=== PATIENT | male | born 1945 | race Hispanic/Latino ===

== ENCOUNTER 2025-02-19 05:56 | Observation (INO) | payer OTHER ==
[2025-02-13 11:31] VITALS: BP 147/71; PULSE 66; RESP 17; TEMP 98.1
--- NOTE | 2025-02-13 11:40 | NUR ---
RE: IS INITIAL IS INITIAL INSTRUCTIONS DONE BY RT ENE DURING PREOP.
[~2025-02-19] VITALS: Ht 180.3 cm; Wt 86.6 kg
[2025-02-19] VITALS (22 sets, daily range): BP systolic 119–153; BP diastolic 63–93; PULSE 62–94; RESP 14–20; TEMP 97.6–98.3; O2SAT 99–100
[2025-02-19] MEDS: GABAPENTIN 300 MG CAPSULE ONE (06:34)
[2025-02-19] MEDS: LACTATED RINGERS 1000ML 1,000 ML IV ONE (06:36)
[2025-02-19] MEDS ORDERED: FAMOTIDINE 20MG VIAL IV ONE (06:46)
[2025-02-19] MEDS ORDERED: LOSA25TA41 PO (06:47)
[2025-02-19] MEDS ORDERED: LIDOCAINE PF 100MG/5ML (2%) SYRINGE 5ML ONE (06:51)
[2025-02-19] MEDS ORDERED: TRANEXAMIC ACID 1000MG/10ML ONE (06:55)
[2025-02-19] MEDS ORDERED: GLYCOPYRROLATE 0.2 MG/ML 5 ML VIAL ONE (08:55)
[2025-02-19] MEDS ORDERED: NEOSTIGMINE METHYLSULFATE 1MG/ML IV ONE (08:55)
[2025-02-19] MEDS ORDERED: FERROUS FUMARATE 324 MG TABLET PO PRN (09:00)
[2025-02-19] MEDS ORDERED: CALCIUM CARB 500MG PO PRN (09:00)
[2025-02-19] MEDS ORDERED: PoTASSium chloRIDE 20MEQ ER 20 MEQ ERTAB PO PRN (09:00)
[2025-02-19] MEDS ORDERED: HYDROcodone/APAP 5/325 1 TAB TABLET PO PRN (09:00)
[2025-02-19] MEDS ORDERED: PoTASSium chl 10% ELIXIR 20MEQ 20 MEQ/15 ML UDCUP PO PRN (09:00)
--- NOTE | 2025-02-19 09:04 | DS ---
Discharge Summary Hospital Course Summary: The patient was admitted to the hospital postoperatively on 02/19/2025 after undergoing left total knee arthroplasty. They did well with routine postoperative pain control. They worked well with physical therapy. They developed some acute blood loss anemia but remained asymptomatic. The hospital course was otherwise uncomplicated. They were subsequently able to be discharged on postoperative day [] once discharge arrangements were made with home health physical therapy. [employer] Equipment Maintenance Supervisor(s): None Procedure(s): Left total knee arthroplasty, 02/19/2025 Assessment/Plan: Postop day two status post left total knee arthroplasty doing well. Patient reports pain is a six this afternoon having just finished therapy. He states that he has had a bowel movement and is excited to go home. Vital signs stable, afebrile No acute distress, alert and oriented x3 Nonlabored breathing Reclined in bed Left lower extremity -mild diffuse edema with mild ecchymosis present about the knee -surgical dressing is clean intact with a small serosanguineous blush -patient is able to tolerate manipulation to get within 5 of full extension with pain -the normal expected amount of postoperative warmth and swelling is present He has been able to walk on room 150-200 feet with physical therapy. He does have home health arranged through the [place]. ASSESSMENT: Status post left total knee arthroplasty Acute blood loss anemia PLAN: See discharge instructions Discharge Instructions: Begin working with home health physical therapy. Dressing may be removed 02/21/2025 and left open to air. Showers ok allowing soap and water to run over the wound. Pat dry. Do not submerge wound in tub/pool. Do not apply ointments. Do not apply Betadine. Do not apply peroxide. Ice packs to decrease pain/swelling. Prescriptions have been sent to the pharmacy: *[place] 5/325mg 1-2 tab every 6 hours as needed for severe pain. (please call for refills) Cyclobenzaprine 5mg 1 tab every 8 hours as needed for muscle spasm pain. Gabapentin 100mg 1 tab every 8 hours (may discontinue if drowsy). Colace 100mg 1 tab orally twice a day as needed for constipation. Aspirin 325mg twice a day for 30 days to prevent blood clots. Follow up appointment scheduled on 03/13/2025 at 1:45 pm [facility]. Home Medications: Active Scripts Docusate Sodium (Colace) 100 Mg Capsule, 1 CAP PO BID for 30 Days, #60 CAP 0 Refills Prov:KIN BERGER MD 02/21/25 Hydrocodone/Acetaminophen (Hydrocodon-Acetaminophen 5-325) 5 Mg-325 Mg Tablet, 2 TAB PO Q6HPRN PRN for SEVERE PAIN (7-10), #56 TAB 0 Refills Prov:KIN BERGER MD 02/21/25 Gabapentin (Neurontin) 100 Mg Capsule, 100 MG PO TID, #90 CAP 0 Refills Prov:KIN BEGRER MD 02/21/25 Cyclobenzaprine HCl (Cyclobenzaprine HCl) 10 Mg Tablet, 5 MG PO Q8H PRN for MUSCLE SPASMS, #45 TAB 0 Refills Prov:KIN BERGER MD 02/21/25 Aspirin (Aspirin EC) 325 Mg Tablet.dr, 325 MG PO DAILY, #30 TAB 0 Refills Prov:KIN BERGER MD 02/21/25 Reported Medications Tamsulosin HCl (Flomax) 0.4 Mg Cap.er.24h, 1 CAP PO DAILY for 30 Days, #30 CAP 0 Refills 02/19/25 Losartan Potassium (Losartan Potassium) 25 Mg Tablet, 0.5 TAB PO DAILY for 30 Days, #30 TAB 0 Refills 02/19/25 KIN BERGER MD Feb 19, 2025 09:04
--- NOTE | 2025-02-19 09:07 | OP ---
Operative Note: DATE OF PROCEDURE: 02/19/25 PREOPERATIVE DIAGNOSIS: Left knee osteoarthritis. POSTOPERATIVE DIAGNOSIS: Left knee osteoarthritis. PROCEDURE PERFORMED: Left knee total knee arthroplasty. SURGEON: Joycelyn Rossi MD THIRD LOADER: Omid Rubio and Martina Cox. ANESTHESIA: General with adductor canal block. ANESTHESIA: NATALIIA Trinh. ESTIMATED BLOOD LOSS: 50cc. COMPLICATIONS: None. DRAINS: None. SPECIMENS REMOVED: resected bone. Not sent to pathology. IMPLANTS: [employer] II BCS size 7 Oxinium femur, size 7 tibial base plate, 35 mm patella, 13 mm polyethylene STATEMENT OF MEDICAL NECESSITY: The patient is a 79-year-old male who suffers from left knee osteoarthritis failing conservative management. After discussion of the risks, benefits, and alternatives with the patient, they voluntarily agreed to undergo the aforementioned procedure. DESCRIPTION OF PROCEDURE: Patient was properly identified in the preoperative holding area. Surgical site marking was verified and surgery consent reviewed. The patient was then taken to the operating room and placed in supine position on the OR table. After induction of general anesthesia, preoperative antibiotics were given, all bony prominences were well-padded, and a well padded tourniquet was applied but not inflated at this time. The left lower extremity was then prepped and draped in usual sterile fashion. Surgical time out was done verifying correct surgery, side, site, and location to be performed. We then began the procedure by exsanguinating the limb using an Esmarch and inflating the tourniquet to 350 mmHg. At this point, we made an anterior midline incision using a 10 blade, coming down sharply the level of the fascia. Skin flaps were elevated medially and laterally. We then obtained a clean 10 blade and performed a standard medial parapatellar arthrotomy. We excised the infrapatellar fat pad. We performed our soft tissue releases off of the tibia. We transected the ACL and removed the anterior portion of the medial & lateral meniscus. We then brought the knee into hyperflexion with the patella everted. We used our entry reamer to enter the femoral canal. We then placed our intramedullary cutting guide for our distal femoral cutting block. We then performed our distal femoral osteotomy ensuring appropriate rotation and removed the bony wafer. We then removed these pins and block and then used jig 2 to size the distal femur with the after mentioned size found. We then placed our 5-in-1 cutting block in 3 degrees of external rotation and took our 5 cuts ensuring to protect the patellar tendon and the collateral ligaments. We then removed the cutting block and our bony fragments using a curved osteotome. We then placed our PCL retractor subluxating the tibia anteriorly. Using an extra medullary tibial cutting guide, we hung the block for our proximal tibial cut taking 2 mm off the more diseased portion. Prior to pinning this block in place, we ensured appropriate varus/valgus alignment and posterior slope similar to the [place] slope of the patient's knee. We then performed our proximal tibial osteotomy and removed the bony wafer using Bovie electrocautery to release any remaining soft tissue attachments. We then used our tibial sizing paddle and checked once more for varus & valgus alignment and found this to be appropriate. At this point, we pinned our tibial paddle in place. We then removed the PCL retractor and subluxated the tibia posteriorly while we placed our femoral trial component. We then finished preparing the notch with the reamer and box chisel. The notch portion of the trial femoral component was then placed. A posterior stabilized polyethylene, size 9 trial was placed. This was immediately increased up to a size 11 due to laxity with varus and valgus stress. The knee was then taken through range of motion and found to have stable full range of motion. We then placed a bump under the ankle and everted the patella to perform our freehand cut of the undersurface the patella. We then sized our patella and reamed to the lug holes for this. We placed our trial patellar component and begin to take the knee through range of motion. The patella had appropriate tracking. At this point we began removing our trial components and punched the tibial keel prior to removing our tibial trial component. Final components were opened and cement was mixed on the back table while we injected local cocktail in the posterior capsule. We then thoroughly irrigated out the bone and dried the bony surfaces. We cemented our tibial component in place ensuring to remove excess cement and placed our trial polyethylene. We then cemented our femoral component in place once again taking time to ensure excess cement was removed leg was brought into full extension to help squeeze the excess cement from around the femoral component. We then brought the knee back in a flexion to remove this portion of the cement at this point we placed the ankle in a bump thoroughly irrigated off the patellar component and cemented our patellar component in standard fashion again removing excess cement. While we waited for the cement to cure, we thoroughly irrigated out the wound with normal saline. Once our cement had cured, we took the knee through a range of motion and found full and stable range of motion. We then elected to use the size 13 polyethylene and removed our trial polyethylene. We impacted our final polyethylene component in place in standard fashion and took the knee through a range of motion check once more. This was satisfactory so we began to repair the arthrotomy using #5 Ethibond and #1 Vicryl in interrupted encnnc-en-oaklz fashion. Subcutaneous tissue was repaired using 2-0 Vicryl. Running subcuticular 3-0 Monocryl stitch with Dermabond placed over this for the skin. We then applied a foam barrier dressing and a pressure dressing consisting of 4 x 4's fluffs and an Tristin wrap. The tourniquet was then deflated. Patient was awakened from anesthesia, and they were taken to the recovery room in stable condition. JOYCELYN ROSSI MD Feb 19, 2025 09:07
--- NOTE | 2025-02-19 10:06 | HMCIMG ---
EXAM: CR right Knee, 2 View. CLINICAL HISTORY: S/P LEFT TKA SURGERY COMPARISON: None provided. FINDINGS: Cemented left total knee arthroplasty is in near anatomic alignment with no periprosthetic fracture appreciated. Appropriate postsurgical changes about the knee joint, and the knee joint effusion. There is no displaced fracture appreciated. IMPRESSION: 1. Near anatomic alignment of cemented left total knee arthroplasty with knee joint effusion. /[place]
[2025-02-19] MEDS: 0.9%NACL 1000ML 1,000 ML IV SCH (12:06)
[2025-02-19] MEDS: HYDROcodone/APAP 5/325 1 TAB TABLET PO PRN ×2 (12:15→19:07)
--- NOTE | 2025-02-19 15:00 | NUR ---
Ortho Coordinator: Teaching regarding DVT and pneumonia prevention, pain expectation and pain management. Patient up to to chair, family member at bedside. B SCD sleeves and machine at bedside. Incentive spirometer at bedside. Respiratory therapy has been notified, pending instructions for use. Patient able to verbalized frequency of use for incentive spirometer, rationale provided. Patient return demonstrated proper foot flexion/extension exercises, rationale provided. Reviewed numeric pain scale. Patient instructed to set an alarm beginning at 1545 for every four hours. Instructed to perform a pain self assessment. Patient is to assign a numeric pain value and type of pain and call for primary nurse. Reminded patient pain medications are to be requested. Patient verbalized understanding. Patient intends to return home with home health physical therapy, has walker. Needs 3-1 commode, shower chair. Pain currently controlled. No additional questions/concerns at this time.
[2025-02-19] MEDS ORDERED: TAMS-55 PO (17:37)
--- NOTE | 2025-02-19 17:54 | NUR ---
DC PLAN VISITED WITH PATIENT. PATIENT LIVES WITH DAUGHTER. INDEPENDENT ABLE TO PERFORM ADL'S. PATIENT HAS NO SERVICES OR DME'S. FEELS SAFE TO RETURN HOME. SAID HE HAS A WALKER BUT IT HAS WHEELS AND WAS TOLD WOULD NEED A NEW ONE. ROBERT SIGNED FOR HOME HEALTH AND DME. PACKET MADE AND SENT TO IN. Addendum: 02/19/25 at 1757 by ARPIT ELIZABETH RN CM Amended: Links added.
[2025-02-20] VITALS (7 sets, daily range): BP systolic 95–122; BP diastolic 56–64; PULSE 61–98; RESP 16–20; TEMP 97.6–98.6; O2SAT 97–98
[2025-02-20 04:25] LABS: NUCLEATED RED BLOOD CELLS 0.0 % (0.0-0.19); PLATELET COUNT (AUTO) 219.0 K/uL (130-400); RED BLOOD CELL COUNT(AUTO) 3.69 MIL/uL (4.50-6.20); RED CELL DISTRIBUTION WIDTH 12.5 % (11.0-15.5); WHITE BLOOD COUNT (AUTO) 14.6 K/uL (4.8-10.8)
[2025-02-20 04:48] LABS: CREATININE 1.0 mg/dL (0.5-1.3); GLOMERULAR FILTR. RATE CALC 77.0 mL/min (>90); GLUCOSE,RANDOM 134.0 mg/dL (70-105); SODIUM SERUM 140.0 mmol/L (136-145); UREA NITROGEN, BLOOD 22.0 mg/dL (7-18)
--- NOTE | 2025-02-20 07:48 | PN ---
Ortho postop day one. This morning patient is seated out of bed resting comfortably in a chair. Adequate pain control. Vital signs have been stable. Afebrile. Laboratory results reviewed. Noted to have a drop in hemoglobin and hematocrit as expected after TKA. Patient is asymptomatic. We will continue to observe and address per protocol as necessary. Performing incentive spirometry appropriately. Voiding on his own. SCD sleeves currently not on but present in the room. He does have ice present to the operative site. The gastrocnemius a soft nontender. Negative Homans. Tristin bandage his already been removed and the anterior dressing is intact. I have instructed him to alternate extension and flexion and a footstool has been provided. Voided with physical therapy about 100 ft and is pending further physical therapy this morning. Anticipated discharge goal for this patient is home health/PT Assessment: Status post left total knee arthroplasty. Asymptomatic acute postoperative blood loss anemia. Plan: Continue with Dr. Rossi's TKA protocol and discharge planning. Asymptomatic acute postoperative blood loss anemia addressed with protocol as necessary Vitals/Labs Vital Signs Date Time Temp Pulse Resp B/P (MAP) Pulse Ox O2 Delivery O2 Flow Rate FiO2 02/20/25 04:00 98.1 61 20 113/62 97 Room Air 02/19/25 20:00 0 21 Laboratory Tests 02/20/25 03:53 Medications Current Medications Cefazolin Sodium 2 gm STK-MED ONCE .ROUTE; Start 02/19/25 at 06:14; Stop 02/19/25 at 06:15; Status DC Lactated Ringer's 1,000 ml @ As Directed STK-MED ONCE IV Last administered on 02/19/25at 06:36; Start 02/19/25 at 06:15; Stop 02/19/25 at 06:15; Status DC Gabapentin 300 mg STK-MED ONCE .ROUTE; Start 02/19/25 at 06:34; Stop 02/19/25 at 06:35; Status DC Acetaminophen 100 ml @ As Directed STK-MED ONCE .ROUTE; Start 02/19/25 at 06:34; Stop 02/19/25 at 06:35; Status DC Ropivacaine 150 mg STK-MED ONCE .ROUTE; Start 02/19/25 at 06:46; Stop 02/19/25 at 06:46; Status DC Ketamine HCl 50 mg STK-MED ONCE .ROUTE; Start 02/19/25 at 06:46; Stop 02/19/25 at 06:46; Status DC Famotidine 20 mg STK-MED ONCE IV; Start 02/19/25 at 06:46; Stop 02/19/25 at 06:46; Status DC Lidocaine HCl 100 mg STK-MED ONCE .ROUTE; Start 02/19/25 at 06:51; Stop 02/19/25 at 06:51; Status DC Propofol 200 mg STK-MED ONCE IV; Start 02/19/25 at 06:52; Stop 02/19/25 at 06:52; Status DC Rocuronium [place] 50 mg STK-MED ONCE .ROUTE; Start 02/19/25 at 06:52; Stop 02/19/25 at 06:52; Status DC Fentanyl Citrate 100 mcg STK-MED ONCE .ROUTE; Start 02/19/25 at 06:54; Stop 02/19/25 at 06:54; Status DC Tranexamic Acid 1,000 mg STK-MED ONCE .ROUTE; Start 02/19/25 at 06:55; Stop 02/19/25 at 06:55; Status DC Ketorolac Tromethamine 30 mg STK-MED ONCE .ROUTE; Start 02/19/25 at 06:55; Stop 02/19/25 at 06:55; Status DC Ropivacaine 150 mg STK-MED ONCE .ROUTE; Start 02/19/25 at 06:55; Stop 02/19/25 at 06:56; Status DC Ondansetron HCl 4 mg STK-MED ONCE .ROUTE; Start 02/19/25 at 07:18; Stop 02/19/25 at 07:19; Status DC Dexamethasone Sodium Phosphate 10 mg STK-MED ONCE .ROUTE; Start 02/19/25 at 07:18; Stop 02/19/25 at 07:19; Status DC Dexamethasone Sodium Phosphate 4 mg STK-MED ONCE .ROUTE; Start 02/19/25 at 07:45; Stop 02/19/25 at 07:45; Status DC Dexmedetomidine HCl 200 mcg STK-MED ONCE IV; Start 02/19/25 at 07:46; Stop 02/19/25 at 07:46; Status DC Glycopyrrolate 1 mg STK-MED ONCE .ROUTE; Start 02/19/25 at 08:55; Stop 02/19/25 at 08:55; Status DC Neostigmine Methylsulfate 10 mg STK-MED ONCE IV; Start 02/19/25 at 08:55; Stop 02/19/25 at 08:55; Status DC Sodium Chloride 1,000 ml @ 100 mls/hr Q10H IV Last administered on 02/19/25at 12:06; Start 02/19/25 at 09:00; Stop 02/20/25 at 08:59 Polyethylene Glycol 17 gm DAILY PO; Start 02/19/25 at 09:00; Stop 03/21/25 at 08:59 Bisacodyl 10 mg DAILY PRN RC; Start 02/22/25 at 09:00; Stop 03/24/25 at 08:59 Ketorolac Tromethamine 15 mg Q6H PRN IV; Start 02/20/25 at 09:00; Stop 02/25/25 at 08:59 Ferrous Fumarate 324 mg DAILY PRN PO; Start 02/19/25 at 09:00; Stop 03/21/25 at 08:59 Ondansetron HCl 4 mg Q6H PRN IVP; Start 02/19/25 at 09:00; Stop 03/21/25 at 08:59 Calcium Carbonate 500 mg Q12H PRN PO; Start 02/19/25 at 09:00; Stop 03/21/25 at 08:59 Cefazolin Sodium 2 gm Q8H IVP Last administered on 02/19/25at 20:17; Start 02/19/25 at 14:00; Stop 02/19/25 at 22:01; Status DC Cyclobenzaprine HCl 5 mg Q8H PRN PO; Start 02/19/25 at 09:00; Stop 03/21/25 at 08:59 Gabapentin 100 mg TID PO Last administered on 02/19/25at 20:17; Start 02/19/25 at 09:00; Stop 03/21/25 at 08:59 Aspirin 325 mg DAILY PO; Start 02/20/25 at 09:00; Stop 03/22/25 at 08:59 Ketorolac Tromethamine 15 mg Q8H IV Last administered on 02/20/25at 01:00; Start 02/19/25 at 09:00; Stop 02/20/25 at 01:01; Status DC Docusate Sodium 100 mg BID PO Last administered on 02/19/25at 20:17; Start 02/19/25 at 09:00; Stop 03/21/25 at 08:59 Potassium Chloride 100 ml @ 100 mls/hr AD PRN IV; Start 02/19/25 at 09:00; Stop 03/21/25 at 08:59 Potassium Chloride 20 meq AD PRN PO; Start 02/19/25 at 09:00; Stop 03/21/25 at 08:59 Potassium Chloride 20 meq AD PRN PO; Start 02/19/25 at 09:00; Stop 03/21/25 at 08:59 Tramadol HCl 50 mg Q6H PRN PO; Start 02/19/25 at 09:00; Stop 02/24/25 at 08:59 Acetaminophen/ Hydrocodone Bitart Q4H PRN PO; Start 02/19/25 at 09:00; Stop 02/19/25 at 09:06; Status DC Losartan Potassium 25 mg DAILY PO; Start 02/19/25 at 09:00; Stop 03/21/25 at 08:59 Fentanyl Citrate 100 mcg STK-MED ONCE .ROUTE Last administered on 02/19/25at 09:16; Start 02/19/25 at 09:11; Stop 02/19/25 at 09:12; Status DC Acetaminophen/ Hydrocodone Bitart 1 tab Q4H PRN PO Last administered on 02/19/25at 19:07; Start 02/19/25 at 09:30; Stop 02/24/25 at 09:29 Acetaminophen/ Hydrocodone Bitart 2 tab Q4H PRN PO Last administered on 02/20/25at 06:35; Start 02/19/25 at 09:30; Stop 02/24/25 at 09:29 Cefazolin Sodium 2 gm STK-MED ONCE IVPB Last administered on 02/19/25at 07:20; Start 02/19/25 at 07:20; Stop 02/19/25 at 09:28; Status DC Tranexamic Acid 1,000 mg STK-MED ONCE IV Last administered on 02/19/25at 07:30; Start 02/19/25 at 07:30; Stop 02/19/25 at 09:28; Status DC Ropivacaine 150 mg STK-MED ONCE IJ Last administered on 02/19/25at 08:45; Start 02/19/25 at 08:45; Stop 02/19/25 at 09:28; Status DC Ketorolac Tromethamine 30 mg STK-MED ONCE IJ Last administered on 02/19/25at 08:45; Start 02/19/25 at 08:45; Stop 02/19/25 at 09:28; Status DC Tranexamic Acid 1,000 mg STK-MED ONCE IV Last administered on 02/19/25at 09:03; Start 02/19/25 at 09:03; Stop 02/19/25 at 09:28; Status DC Ketorolac Tromethamine 15 mg STK-MED ONCE .ROUTE; Start 02/19/25 at 09:21; Stop 02/19/25 at 09:22; Status DC Tamsulosin HCl 0.4 mg DAILY PO Last administered on 02/19/25at 20:17; Start 02/19/25 at 20:00; Stop 03/21/25 at 19:59 MILAN MANNING NP Feb 20, 2025 07:48
[2025-02-20] MEDS: ASPIRIN 325MG EC TAB PO SCH (11:05)
--- NOTE | 2025-02-20 16:00 | NUR ---
Ortho Coordinator: Reinforced teaching. Patient in bed, dressed in street clothes, reports showering. SCD sleeves and machine in room, reminded patient to alert staff if he cannot feel compression in both sleeves. Dressing to left knee clean, dry and intact. Pain controlled. Patient reports just completing physical therapy. Reinforced importance of self pain assessments, continuing to premedicate prior to physical therapy and periods of high activity once discharged home. Patient encouraged to continue use of incentive spirometry until back to pre-surgery activity levels. DVT prevention reviewed, patient performed foot flexion/extension exercises. Next steps reviewed with regards to home health physical therapy. Patient verbalized understanding to all instructions, no additional questions.
[2025-02-20] MEDS: CYCLOBENZAPRINE HCL 10 MG TABLET PO PRN (20:02)
[2025-02-21] VITALS: BP 127/63; PULSE 95; RESP 20; TEMP 98.1
[2025-02-21 04:00] VITALS: BP 128/72; PULSE 91; RESP 20; TEMP 98.4
[2025-02-21 08:00] VITALS: BP 120/56; PULSE 84; RESP 18; TEMP 98.2
--- NOTE | 2025-02-21 08:08 | NUR ---
PT WAS FOUND SITTING ON THE CHAIR A&O X4. PT STATED PAIN OF 6/10 WHEN PT WALKS HIM. L. KNEE WITH DRESSING IN TACT. NO DRAINAGE NOTED. NO BRUISING NOTED AROUND DRESSING AREA. SOME SWELLING NON PITTING.
[2025-02-21 08:10] VITALS: O2SAT 100
--- NOTE | 2025-02-21 08:18 | NUR ---
PT REFUSED MIRALAX PER PT VERBALIZED HAVING A BOWEL MOVEMENT THIS MORNING. PT WAS EDUCATED ON THE IMPORTANCE OF USING THE INCENTIVE SPIROMETER EVERY 2 HOURS. PT VERBALIZED UNDERSTANDING & DENIED NEEDING ANY FURTHER ASSISTANCE.
[2025-02-21 12:00] VITALS: BP 124/60; PULSE 86; RESP 18; TEMP 98.4
--- NOTE | 2025-02-21 15:00 | NUR ---
Ortho Coordinator: Reinforced teaching. Patient up to chair in street clothes, family at bedside. Patient received call from [place] regarding home health, medications will be called prior to 1700. Reinforced teaching regarding need to continue premedication prior to physical therapy and periods of high activity, continue use of incentive spirometer until activity level back to pre-surgery level, continue foot flexion and extension exercises. Surgical site intact, small serosanguineous drainage from lower 1/3 of suture line. Reassured normal and reviewed normal and signs/symptoms of infection. All questions answered. Patient and family verbalized understanding. No additional questions or concerns at this time.
[2025-02-21] MEDS ORDERED: CYCL-309 PO (15:29)
[2025-02-21] MEDS ORDERED: GABA100C PO (15:29)
[2025-02-21] MEDS ORDERED: ASPI-891 PO (15:29)
[2025-02-21] MEDS ORDERED: HYDR-4060 PO (15:29)
[2025-02-21] MEDS ORDERED: DOCU-116 PO (15:29)
--- NOTE | 2025-02-21 16:58 | NUR ---
CALLED [facility]. GAVE REPORT TO NURSE.
--- NOTE | 2025-02-21 17:00 | NUR ---
DISCHARGE PATIENT WAS EDUCATED ON THE IMPORTANCE OF IS USAGE TO PREVENT PNEUMONIA. PT WAS INSTRUCTED TO MANAGE PAIN WITH MEDICATIONS ORDERED AND INCISION CARE AND S/S OF INFECTION. PT VERBALIZED UNDERSTANDING. IV WAS REMOVED WITHOUT COMPLICATIONS. PT VERBALIZED NOT NEEDING FURTHER ASSISTANCE. WAS TRANSPORTED DOWNSTAIRS VIA W/C BY LONGITUDINAL FLOAT OPERATOR. NO S/S OF DISTRESS.
--- NOTE | 2025-02-21 17:18 | NUR ---
DC PLAN VISITED WITH PATIENT. LET HIM KNOW THAT PATIENT IS ACCEPTED. ID HAS NOT CALLED ABOUT THE WALKER BHARAT SANDOVAL [id number]. VERBALIZED UNDERSTANDING TO RETURN WHEN ID GIVES HIS. GAVE COPY TO PATIENT. ASKED NURSE SAID CALLED REPORT TO [facility]. Addendum: 02/21/25 at 1720 by ARPIT ELIZABETH RN CM Amended: Links added.
== END 2025-02-21 17:00 | disposition home or self-care (01) ==
LOC: DAH 05:56 → DAHIP 05:57 → DAH 05:57 → 4AH 10:00
PROVIDERS: ADMIT Student in an Organized Health Care Education/Training Program; ATTEND Student in an Organized Health Care Education/Training Program
DX: M17.12 Unilateral primary osteoarthritis, left knee (principal); G89.18 Other acute postprocedural pain; D62 Acute posthemorrhagic anemia; Z79.899 Other long term (current) drug therapy
CPT/HCPCS: 84134; 86140; 36415 ×2; 87641; 27447; 96365; 96366; 96375; 64447; 73560; 97161; 97116 ×5; 96376; 80048; 85027; 97530 ×4; G0378 ×56; A4663; J7120; J3490 ×8; J3010 ×2; J1100; J7030; J2003; J2704; J2405; J1885 ×5; J2710; J2795 ×3; J0690 ×4; C1713 ×2; C1776 ×2; A4649 ×2; A4930 ×2; A6255; A5120; A4215; A4223 ×2; A4222; A4221; A4216